=== PATIENT | female | born 1945 | race Caucasian/White ===

== ENCOUNTER 2017-01-10 10:00 | Day surgery (SDC) | payer OTHER ==
[2017-01-05 16:00] VITALS: BMI 28.3
[2017-01-10 10:48] VITALS: TEMP 98.1
[2017-01-10] MEDS ORDERED: PROPOFOL 20 ML ONE ×2 (11:56)
[2017-01-10 13:11] VITALS: BP 102/60; PULSE 61
--- NOTE | 2017-01-11 14:02 | PATH ---
Surgical Pathology Report Patient Name: MP RODRIGUEZ [facility]. Rec. #: [id number] /Age/Gender: 1945 (Age: 71) / F Account: [id number] Location: [facility]-ENDOSCOPY Taken: 01/10/2017 Received: 01/10/2017 Reported: 01/11/2017 Physicians: Charly Boss M.D. Specimen(s) Received BX CECUM Clinical History History of polyp Polyp Final Diagnosis COLON, CECUM, BIOPSY: COLONIC MUCOSA WITH NO PATHOLOGIC CHANGES. NO ADENOMATOUS OR HYPERPLASTIC CHANGES IDENTIFIED. Electronically Signed Kb Millard M.D. Gross Description Received in formalin, labeled "cecum" is a martini, irregular portion of soft tissue measuring 0.3 cm. in greatest dimension. The specimen is submitted in toto in one cassette. 01/10/201701/10/2017
== END 2017-01-10 12:20 | disposition home or self-care (01) ==
LOC: FASU-ENDO 10:00
PROVIDERS: ATTEND Internal Medicine Gastroenterology
PROC: 0DBH8ZX Excision of Cecum, Via Natural or Artificial Opening Endoscopic, Diagnostic (ICD-10-PCS; principal; 2017-01-10 12:08)
DX: Z86.010 Personal history of colon polyps (principal); K57.30 Diverticulosis of large intestine without perforation or abscess without bleeding
CPT/HCPCS: 88305-TC